=== PATIENT | male | born 1960 | race Caucasian/White ===

== ENCOUNTER 2017-12-09 21:11 | Inpatient (IN) | payer BC ==
[~2017-12-09] VITALS: Ht 180.3 cm; Wt 119.0 kg
[~2017-12-09 21:11] MED LIST: AMBIEN10 MG PO; COREG6.25 M1 PO; DIOVAN HCT 11 TABLET PO; DIOVAN HCT 81 TABLET PO; HUMALOG100 UNIT/1 SC; IMDUR30 MG PO; KADIAN60 MG PO; LANTUS 10100 UNITS/ SC; LUNESTA1 MG PO; MS CONTIN,ORAMO15 M1 PO; NEURONTIN600 MG PO; NITROSTAT0.4 MG SL; PHENTERMINE H37.5 MG PO; PRAVASTATIN SOD40 MG PO; PRILOSEC20 MG PO; RANEXA1000 MG PO; REMERON30 M2 PO; VITAMIN D32000 UNI1 PO; WELLBUTRIN XL300 MG PO; XARELTO20 MG PO
[2017-12-10 09:14] VITALS: BP 130/70
[2017-12-10 14:35] VITALS: BP 139/71
[2017-12-10 19:58] VITALS: BP 129/76
[2017-12-11 00:24] VITALS: BP 158/88
[2017-12-11 03:55] VITALS: BP 139/75
[2017-12-11 07:47] LABS: HEMATOCRIT 39.6 % (38.0-50.0); HEMOGLOBIN 13.2 G/DL (12.5-16.6); MCH 28.8 PG (29.0-34.0); MCHC 33.3 G/DL (30.0-36.0); MCV 86.3 FL (86-99); PLATELET COUNT 308 K/uL (156-360); RBC DIS.WIDTH-CV 14.4 % (11.8-14.6); RBC DIS.WIDTH-SD 45.1 % (39-53); RED BLOOD COUNT 4.59 M/uL (4.00-5.50); WHITE BLOOD COUNT 14.2 K/uL (4.1-10.2)
[2017-12-11 08:00] VITALS: BP 145/86
[2017-12-11 13:25] VITALS: BP 137/76
== END 2017-12-11 14:36 | disposition home or self-care (01) | DRG 328 ==
LOC: ENRESERV 21:11 → 2SOUTH 12-10 08:57 → ENRESERV 12-10 13:01 → 2SOUTH 12-10 13:29 → 2EAST 12-10 14:34 → 2SOUTH 12-10 16:44 → ENPENDDIS 12-11 → 2EAST 12-11 14:36
PROVIDERS: Surgery
DX: K44.9 Diaphragmatic hernia without obstruction or gangrene (principal); E66.01 Morbid (severe) obesity due to excess calories; Z68.36 Body mass index [BMI] 36.0-36.9, adult; I10 Essential (primary) hypertension; G47.30 Sleep apnea, unspecified; K21.9 Gastro-esophageal reflux disease without esophagitis; K22.70 Barrett's esophagus without dysplasia; K76.0 Fatty (change of) liver, not elsewhere classified
CPT/HCPCS: 82948; 85027; C9113; J0131; J0330; J0690; J1100; J1170; J1644; J1650; J1885; J2250; J2405; J2710; J3480; J7120; S0020